=== PATIENT | female | born 1970 | race Two or more races ===

== ENCOUNTER 2017-04-09 11:01 | Outpatient (CLI) | payer OTHER ==
[~2017-04-09 11:01] MED LIST: KETO10TA2 PO; LOSARTAN-HCTZ1 EAC1; ORPH100T PO; TOPROL XL25 M1
== END 2017-04-09 11:42 | disposition home or self-care (01) ==
LOC: LAB 11:01
DX: R10.13 Epigastric pain (principal)

== ENCOUNTER 2017-04-09 11:34 | Outpatient (CLI) | payer OTHER | END 2017-04-09 16:20 | disposition home or self-care (01) | LOC: SONOGRAMA 11:34 | DX: R10.9 Unspecified abdominal pain (principal) ==

== ENCOUNTER 2017-04-16 13:03 | Outpatient (CLI) | payer OTHER | END 2017-04-16 13:07 | disposition home or self-care (01) | LOC: NUCLEAR 13:03 | DX: K81.1 Chronic cholecystitis (principal) | CPT/HCPCS: 78452; 93017; A9537; J2805 ==